=== PATIENT | male | born 1980 | race Caucasian/White ===

== ENCOUNTER → 2016-09-10 | Outpatient (CLI) | payer OTHER ==
[~2016-09-10] MED LIST: AMLO25TA PO; AMLO5TAB2 PO; ATOR1TAB19 PO; CELE40TA PO; CLAR10CA3 PO; GABA300C3 PO; GEMF600T PO; HYDR-3716 PO; HYDR-3719 PO; MOBI15TA PO; OMEP40CA2 PO; QUET1TAB10 PO; QUET1TAB8 PO; RANI150T PO; VENL150T PO
--- NOTE | 2016-09-10 13:53 | REP ---
LEFT SHOULDER: Three views. HISTORY: Left shoulder injury. FINDINGS: The left glenohumeral and acromioclavicular joints are normally aligned. Periarticular soft tissues are unremarkable. No fracture is seen. No subluxation noted. IMPRESSION: No fracture noted. Signed by Taran Mac MD 09/10/2016 03:10 P
== END ==
LOC: M LRY 09:38
PROVIDERS: ATTEND Physician Assistant
DX: S49.91XA Unspecified injury of right shoulder and upper arm, initial encounter (principal); X58.XXXA Exposure to other specified factors, initial encounter; Y92.9 Unspecified place or not applicable; Y93.9 Activity, unspecified; Y99.9 Unspecified external cause status

== ENCOUNTER → 2016-09-10 | Outpatient (REF) | payer OTHER ==
[2016-09-10 11:26] LABS: MEAN CORPUSCULAR HEMOGLOBIN 29.2 pg (27.0-33.0); MEAN CORPUSCULAR HGB CONC 32.6 g/dl (32.0-36.5); MEAN CORPUSCULAR VOLUME 89.6 fl (80.0-96.0); RED CELL DISTRIBUTION WIDTH 12.6 % (11.5-14.5); WHITE BLOOD COUNT 6.3 K/mm3 (4.0-10.0)
[2016-09-10 11:51] LABS: ALBUMIN/GLOBULIN RATIO 1.33 (1.00-1.93); ALKALINE PHOSPHATASE 89 U/L (45-117); ALT/SGPT 66 U/L (12-78); ANION GAP 8 MEQ/L (8-16); AST/SGOT 23 U/L (15-37); BILIRUBIN,TOTAL 0.1 MG/DL (0.2-1.0); BLOOD UREA NITROGEN 11 MG/DL (7-18); CALCIUM LEVEL 8.7 MG/DL (8.5-10.1); CARBON DIOXIDE LEVEL 27 MEQ/L (21-32); CHLORIDE LEVEL 105 MEQ/L (98-107); CHOLESTEROL LEVEL 182 MG/DL (<200); CREATININE FOR GFR 0.93 MG/DL (0.70-1.30); GLOMERULAR FILTRATION RATE > 60.0 (>60); GLUCOSE, FASTING 145 MG/DL (70-105); POTASSIUM SERUM 4.7 MEQ/L (3.5-5.1); SODIUM LEVEL 140 MEQ/L (136-145); TRIGLYCERIDES LEVEL 469 MG/DL (<150)
== END ==
LOC: M SFHCLERA 09:24
PROVIDERS: ATTEND Physician Assistant
DX: I10 Essential (primary) hypertension (principal); R73.01 Impaired fasting glucose; E78.2 Mixed hyperlipidemia; L74.519 Primary focal hyperhidrosis, unspecified

== ENCOUNTER → 2017-03-18 | Outpatient (REF) | payer OTHER ==
[~2017-03-18] MED LIST changes: +GABA-282 PO; -GABA300C3 PO; +IBUP80TA PO; +KEFL500C17 PO
== END ==
LOC: M SFHCLERA 09:03
PROVIDERS: ATTEND Physician Assistant
DX: I10 Essential (primary) hypertension (principal); E78.2 Mixed hyperlipidemia; R73.01 Impaired fasting glucose; Z53.9 Procedure and treatment not carried out, unspecified reason

== ENCOUNTER 2017-03-26 14:35 | Emergency (ER) | payer MEDICAID, OTHER ==
[~2017-03-26] VITALS: Ht 167.6 cm; Wt 106.4 kg
[2017-03-26 14:35] VITALS: BP 137/80
[~2017-03-26 14:35] MED LIST changes: -IBUP80TA PO; -KEFL500C17 PO
[2017-03-26] MEDS ORDERED: KEFL500C17 PO (17:54)
[2017-03-26] MEDS ORDERED: IBUP80TA PO (17:55)
== END 2017-03-26 18:12 | disposition home or self-care (01) ==
LOC: M ED 14:35
DX: L60.0 Ingrowing nail (principal); L03.032 Cellulitis of left toe; K21.9 Gastro-esophageal reflux disease without esophagitis; F33.8 Other recurrent depressive disorders; F17.290 Nicotine dependence, other tobacco product, uncomplicated; Z79.899 Other long term (current) drug therapy

== ENCOUNTER → 2017-04-14 | Outpatient (CLI) | payer OTHER ==
[~2017-04-14] MED LIST changes: +IBUP80TA PO; +KEFL500C17 PO
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
== END ==
LOC: M PAIN 14:45
PROVIDERS: ATTEND Nurse Practitioner Family
DX: G89.29 Other chronic pain (principal); M51.16 Intervertebral disc disorders with radiculopathy, lumbar region; M51.26 Other intervertebral disc displacement, lumbar region; M79.1 Myalgia; K21.9 Gastro-esophageal reflux disease without esophagitis; I10 Essential (primary) hypertension; Z72.0 Tobacco use; R73.01 Impaired fasting glucose; E66.09 Other obesity due to excess calories; E78.2 Mixed hyperlipidemia; F60.5 Obsessive-compulsive personality disorder; F63.81 Intermittent explosive disorder; F34.1 Dysthymic disorder; Z68.36 Body mass index [BMI] 36.0-36.9, adult; J30.2 Other seasonal allergic rhinitis; Z79.899 Other long term (current) drug therapy

== ENCOUNTER → 2017-10-01 | Outpatient (CLI) | payer OTHER | LOC: M PAIN 09:30 | DX: M51.16 Intervertebral disc disorders with radiculopathy, lumbar region (principal); M79.1 Myalgia; K21.9 Gastro-esophageal reflux disease without esophagitis; F41.9 Anxiety disorder, unspecified; F32.9 Major depressive disorder, single episode, unspecified; I10 Essential (primary) hypertension; E78.5 Hyperlipidemia, unspecified; J30.2 Other seasonal allergic rhinitis; Z72.0 Tobacco use; E66.01 Morbid (severe) obesity due to excess calories; Z68.36 Body mass index [BMI] 36.0-36.9, adult; Z79.899 Other long term (current) drug therapy | CPT/HCPCS: G0463 ==

== ENCOUNTER → 2017-11-02 | Outpatient (CLI) | payer OTHER | LOC: M PAIN 09:30 | DX: G89.29 Other chronic pain (principal); M51.16 Intervertebral disc disorders with radiculopathy, lumbar region; M79.1 Myalgia; Z79.899 Other long term (current) drug therapy; K21.9 Gastro-esophageal reflux disease without esophagitis; J30.2 Other seasonal allergic rhinitis; F41.9 Anxiety disorder, unspecified; F32.9 Major depressive disorder, single episode, unspecified; R73.01 Impaired fasting glucose; I10 Essential (primary) hypertension; E66.9 Obesity, unspecified; E78.2 Mixed hyperlipidemia; Z87.891 Personal history of nicotine dependence; Z68.38 Body mass index [BMI] 38.0-38.9, adult | CPT/HCPCS: G0463 ==

== ENCOUNTER 2017-12-17 03:55 | Emergency (ER) | payer OTHER, MEDICAID ==
[2017-12-17] MEDS: diazePAM 5 MG TAB PO (06:27)
[2017-12-17] MEDS: KETOROLAC 60 MG/2 ML VIAL (J1885) IM (06:28)
== END 2017-12-17 07:10 | disposition home or self-care (01) ==
LOC: M ED 03:55
DX: M54.5 Low back pain (principal); I10 Essential (primary) hypertension; K21.9 Gastro-esophageal reflux disease without esophagitis; E78.00 Pure hypercholesterolemia, unspecified; Z79.899 Other long term (current) drug therapy
CPT/HCPCS: J1885

== ENCOUNTER → 2019-05-10 | Outpatient (REF) ==
[~2019-05-10] MED LIST changes: -AMLO5TAB2 PO; +AMLO5TAB6 PO; -GABA-282 PO; +GABA-843 PO; -GEMF600T PO; +GEMF600T5 PO; +KETO10TAB PO; +SKEL800T97 PO; -VENL150T PO; +VENL150T14 PO
--- NOTE | 2019-05-11 02:30 | REP ---
Clinical: Low back pain. Technique: AP, lateral, coned-down views of the lumbosacral spine. Findings: Alignment and lordosis maintained. No acute fracture / compression injury or subluxation. Moderate degenerative changes at L5-S1 includes endplate sclerosis with disc space narrowing and hypertrophic facet changes. Impression: Moderate focal degenerative spondylosis at L5-S1 . Electronically Signed by Jose Olivera MD 05/11/2019 02:21 A
== END ==
LOC: M SMT 11:31
PROVIDERS: ATTEND Internal Medicine
DX: Z02.71 Encounter for disability determination (principal)

== ENCOUNTER → 2020-04-05 | Emergency (ER) | payer OTHER, MEDICAID ==
[~2020-04-05] MED LIST changes: +AMLO1TAB24 PO; -AMLO5TAB6 PO; -OMEP40CA2 PO; +OMEP40CA97 PO; +QUET100T2 PO; -QUET1TAB8 PO
[2020-05-20 10:55] LABS: BASO % 0.2 % (0.0-1.0); EOS % 0.3 % (0.0-3.0); HEMATOCRIT 43.4 % (42.0-52.0); HEMOGLOBIN 14.2 g/dl (13.5-17.5); LYMPH # 1.5 10^3/uL (1.5-5.0); LYMPH % 16.1 % (24.0-44.0); MEAN CORPUSCULAR HEMOGLOBIN 29.8 pg (27.0-33.0); MEAN CORPUSCULAR HGB CONC 32.7 g/dl (32.0-36.5); MONO # 0.7 10^3/uL (0.0-0.8); NEUTROPHILS # 6.9 10^3/uL (1.5-8.5); NEUTROPHILS % 75.1 % (36.0-66.0); PLATELET COUNT, AUTOMATED 346 10^3/uL (150-450); RED BLOOD COUNT 4.77 10^6/uL (4.30-6.10); WHITE BLOOD COUNT 9.2 10^3/uL (4.0-10.0)
[2020-06-28 13:57] LABS: ACETAMINOPHEN LEVEL < 2.0 UG/ML (10.0-30.0); AMPHETAMINES LEVEL URINE NEGATIVE (NEGATIVE); BARBITURATES URINE NEGATIVE (NEGATIVE); BENZODIAZEPINES URINE NEGATIVE (NEGATIVE); BLOOD UREA NITROGEN 12 MG/DL (7-18); CALCIUM LEVEL 9.6 MG/DL (8.5-10.1); CANNABINOIDS URINE POSITIVE (NEGATIVE); CARBON DIOXIDE LEVEL 27 MEQ/L (21-32); CHLORIDE LEVEL 105 MEQ/L (98-107); COCAINE METABOLITE URINE NEGATIVE (NEGATIVE); CREATININE FOR GFR 1.06 MG/DL (0.70-1.30); ETHYL ALCOHOL (ETHANOL) < 0.003 % (0.000-0.010); FREE T4 0.99 NG/DL (0.76-1.46); GLOMERULAR FILTRATION RATE > 60.0 (>60); GLUCOSE, FASTING 143 MG/DL (70-100); METHADONE URINE NEGATIVE (NEGATIVE); OPIATES URINE NEGATIVE (NEGATIVE); PHENCYCLIDINE URINE NEGATIVE (NEGATIVE); SALICYLATE LEVEL 5.5 MG/DL (5.0-30.0); SODIUM LEVEL 139 MEQ/L (136-145)
== END | disposition home or self-care (01) ==
LOC: M ED 09:20
DX: F43.0 Acute stress reaction (principal); F32.9 Major depressive disorder, single episode, unspecified; F90.9 Attention-deficit hyperactivity disorder, unspecified type; F17.200 Nicotine dependence, unspecified, uncomplicated; Z79.899 Other long term (current) drug therapy
CPT/HCPCS: 80048; 80307; 84439; 84443; 85025; 99284; G0480

== ENCOUNTER 2022-05-30 06:50 | Emergency (ER) | payer MEDICAID, OTHER ==
[~2022-05-30] VITALS: Ht 167.6 cm; Wt 95.5 kg
[~2022-05-30 06:50] MED LIST changes: +GABA-282 PO; -GABA-843 PO; +OMEP40CA4 PO; -OMEP40CA97 PO; -QUET1TAB10 PO; +QUET300T2 PO
[2022-05-30 06:51] VITALS: BP 165/96
[2022-05-30] MEDS ORDERED: KETOROLAC 60MG 2ML VIAL IM ONE (08:25)
[2022-05-30] MEDS ORDERED: LIDOCAINE VISCOUS 2% SOLN 15ML UDC SSP ONE (08:25)
[2022-05-30] MEDS ORDERED: AUGMENTIN 875 MG TAB PO ONE (08:25)
[2022-05-30] MEDS ORDERED: AMOX875T2 PO (08:29)
[2022-05-30] MEDS ORDERED: LIDO2SOL17 PO (08:29)
[2022-05-30] MEDS ORDERED: HYDR-3713 PO (08:29)
[2022-05-30] MEDS ORDERED: NAPR-837 PO (08:29)
== END 2022-05-30 08:50 | disposition home or self-care (01) ==
LOC: M ED 06:50
DX: K02.9 Dental caries, unspecified (principal); K03.81 Cracked tooth; I10 Essential (primary) hypertension; E78.5 Hyperlipidemia, unspecified; F17.200 Nicotine dependence, unspecified, uncomplicated; Z79.899 Other long term (current) drug therapy
CPT/HCPCS: 96372; 99282; J1885

== ENCOUNTER → 2024-04-27 | Outpatient (CLI) | payer OTHER ==
[~2024-04-27] MED LIST changes: +AMOX875T2 PO; +HYDR-3713 PO; +LIDO15SO8 PO; +NAPR-837 PO
[2024-04-27 15:30] LABS: BASO % 0.8 % (0.0-1.0); EOS # 0.3 10^3/uL (0.0-0.5); EOS % 5.1 % (0.0-3.0); HEMATOCRIT 42.9 % (42.0-52.0); HEMOGLOBIN 13.9 g/dl (13.5-17.5); LYMPH # 1.5 10^3/uL (1.5-5.0); LYMPH % 30.8 % (24.0-44.0); MEAN CORPUSCULAR HEMOGLOBIN 29.6 pg (27.0-33.0); MEAN CORPUSCULAR HGB CONC 32.4 g/dl (32.0-36.5); MEAN CORPUSCULAR VOLUME 91.3 fl (80.0-96.0); MONO # 0.4 10^3/uL (0.0-0.8); MONO % 7.8 % (2.0-8.0); NEUTROPHILS # 2.7 10^3/uL (1.5-8.5); NEUTROPHILS % 55.1 % (36.0-66.0); PLATELET COUNT, AUTOMATED 345 10^3/uL (150-450); WHITE BLOOD COUNT 4.9 10^3/uL (4.0-10.0)
[2024-04-27 15:36] LABS: ALKALINE PHOSPHATASE 80 U/L (46-116); ALT/SGPT 11 U/L (7.0-40); AST/SGOT < 8 U/L (<34); BILIRUBIN,TOTAL 0.2 MG/DL (0.3-1.2); BLOOD UREA NITROGEN 12 MG/DL (9-23); CALCIUM LEVEL 9.4 MG/DL (8.5-10.1); CARBON DIOXIDE LEVEL 28 MMOL/L (20-31); CHLORIDE LEVEL 108 MMOL/L (98-107); CHOLESTEROL LEVEL 224 MG/DL (<200); CHOLESTEROL RISK RATIO 5.33 (<5); CREATININE FOR GFR 0.91 MG/DL (0.70-1.30); GLOMERULAR FILTRATION RATE > 60.0 (>60); GLUCOSE, FASTING 111 MG/DL (60-100); LDL CHOLESTEROL 149.8 MG/DL (<100); POTASSIUM SERUM 4.4 MMOL/L (3.5-5.1); SODIUM LEVEL 140 MMOL/L (136-145); TOTAL PROTEIN 6.9 G/DL (5.7-8.2); TRIGLYCERIDES LEVEL 161 MG/DL (<150)
[2024-04-27 15:43] LABS: FREE T4 1.31 NG/DL (0.89-1.76); THYROID STIMULATING HORMONE 0.398 uIU/ML (0.55-4.78)
[2024-04-27 15:44] LABS: TOTAL 25(OH) VITAMIN D 25.3 NG/ML (20.0-100.0)
[2024-04-27 15:53] LABS: HEMOGLOBIN A1c 5.9 % (4.0-6.0)
== END ==
LOC: M PLALAB 12:28
PROVIDERS: ATTEND Physician Assistant
DX: I10 Essential (primary) hypertension (principal); K21.9 Gastro-esophageal reflux disease without esophagitis; R73.01 Impaired fasting glucose; E66.09 Other obesity due to excess calories; E78.2 Mixed hyperlipidemia

== ENCOUNTER → 2024-10-04 | Outpatient (CLI) | payer MEDICAID, OTHER ==
[~2024-10-04] MED LIST changes: +GABA-1172 PO; -GABA-282 PO
[2024-10-04 15:10] LABS: BASO % 0.4 % (0.0-1.0); EOS # 0.5 10^3/uL (0.0-0.5); EOS % 7.5 % (0.0-3.0); HEMATOCRIT 45.7 % (42.0-52.0); HEMOGLOBIN 14.7 g/dl (13.5-17.5); LYMPH # 1.6 10^3/uL (1.5-5.0); LYMPH % 24.2 % (24.0-44.0); MEAN CORPUSCULAR HEMOGLOBIN 28.9 pg (27.0-33.0); MEAN CORPUSCULAR HGB CONC 32.2 g/dl (32.0-36.5); MEAN CORPUSCULAR VOLUME 89.8 fl (80.0-96.0); MONO # 0.5 10^3/uL (0.0-0.8); MONO % 7.4 % (2.0-8.0); NEUTROPHILS # 4.1 10^3/uL (1.5-8.5); NEUTROPHILS % 60.2 % (36.0-66.0); PLATELET COUNT, AUTOMATED 283 10^3/uL (150-450); RED BLOOD COUNT 5.09 10^6/uL (4.30-6.10); WHITE BLOOD COUNT 6.8 10^3/uL (4.0-10.0)
[2024-10-04 15:21] LABS: LIPASE 46 U/L (12-53)
[2024-10-04 15:23] LABS: ALBUMIN 4.1 G/DL (3.2-5.2); ALKALINE PHOSPHATASE 69 U/L (40-129); ALT/SGPT 11 U/L (7.0-40); AST/SGOT < 8 U/L (<34); BILIRUBIN,TOTAL 0.3 MG/DL (0.3-1.2); BLOOD UREA NITROGEN 11 MG/DL (9-23); CALCIUM LEVEL 8.9 MG/DL (8.5-10.1); CARBON DIOXIDE LEVEL 26 MMOL/L (20-31); CHLORIDE LEVEL 107 MMOL/L (98-107); CREATININE FOR GFR 0.88 MG/DL (0.70-1.30); GLOMERULAR FILTRATION RATE > 60.0 (>60); GLUCOSE, FASTING 115 MG/DL (60-100); POTASSIUM SERUM 4.7 MMOL/L (3.5-5.1); SODIUM LEVEL 141 MMOL/L (136-145); TOTAL PROTEIN 6.7 G/DL (5.7-8.2)
== END ==
LOC: M PLALAB 10:55
PROVIDERS: ATTEND Nurse Practitioner Family
DX: R10.9 Unspecified abdominal pain (principal)

== ENCOUNTER → 2024-10-09 | Outpatient (CLI) | payer MEDICAID ==
[~2024-10-09] MED LIST changes: +ISOVUE-370 76% 100ML VIAL As Ordered ONE
== END ==
LOC: M RAD 10:33
PROVIDERS: ATTEND Student in an Organized Health Care Education/Training Program
DX: R10.9 Unspecified abdominal pain (principal)

== ENCOUNTER 2024-10-25 12:18 | Emergency (ER) | payer MEDICAID, OTHER ==
[~2024-10-25] VITALS: Ht 162.6 cm; Wt 95.2 kg
[~2024-10-25 12:18] MED LIST changes: -ISOVUE-370 76% 100ML VIAL As Ordered ONE
[2024-10-25 12:19] VITALS: BP 145/84; TEMP 97; O2SAT 97
[2024-10-25 14:32] LABS: KETONE, URINE AUTO RFX NEGATIVE (NEGATIVE); LEUKOCYTE ESTERASE UR AUTO RFX NEGATIVE (NEGATIVE); MUCUS, URINE RFX SMALL (NEGATIVE); NITRITE, URINE AUTO RFX NEGATIVE (NEGATIVE); RBC, URINE AUTO RFX 1 /HPF (0-3); SQUAM EPITHELIAL CELL UR AURFX 2 /HPF (0-6); WBC, URINE AUTO RFX 1 /HPF (0-3)
[2024-10-25 15:32] LABS: Trichomonas vaginalis (AMP) NOT DETECTED (NEGATIVE)
[2024-10-25 15:57] LABS: GC DNA AMPLIFICATION NEGATIVE (NEGATIVE)
[2024-10-25 16:23] LABS: BASO % 0.5 % (0.0-1.0); EOS # 0.3 10^3/uL (0.0-0.5); EOS % 4.9 % (0.0-3.0); HEMATOCRIT 43.8 % (42.0-52.0); HEMOGLOBIN 14.1 g/dl (13.5-17.5); LYMPH # 1.7 10^3/uL (1.5-5.0); LYMPH % 29.1 % (24.0-44.0); MEAN CORPUSCULAR HGB CONC 32.2 g/dl (32.0-36.5); MEAN CORPUSCULAR VOLUME 89.9 fl (80.0-96.0); MONO # 0.5 10^3/uL (0.0-0.8); MONO % 8.6 % (2.0-8.0); NEUTROPHILS # 3.2 10^3/uL (1.5-8.5); NEUTROPHILS % 56.7 % (36.0-66.0); PLATELET COUNT, AUTOMATED 311 10^3/uL (150-450); RED BLOOD COUNT 4.87 10^6/uL (4.30-6.10); WHITE BLOOD COUNT 5.7 10^3/uL (4.0-10.0)
[2024-10-25 16:50] LABS: ALBUMIN 4.3 G/DL (3.2-5.2); ALKALINE PHOSPHATASE 59 U/L (40-129); ALT/SGPT 12 U/L (7.0-40); AST/SGOT 10 U/L (<34); BILIRUBIN,TOTAL 0.5 MG/DL (0.3-1.2); BLOOD UREA NITROGEN 8 MG/DL (9-23); CALCIUM LEVEL 9.2 MG/DL (8.5-10.1); CARBON DIOXIDE LEVEL 26 MMOL/L (20-31); CHLORIDE LEVEL 107 MMOL/L (98-107); CREATININE FOR GFR 0.85 MG/DL (0.70-1.30); GLOMERULAR FILTRATION RATE > 60.0 (>60); GLUCOSE, FASTING 108 MG/DL (60-100); POTASSIUM SERUM 4.1 MMOL/L (3.5-5.1); SODIUM LEVEL 143 MMOL/L (136-145); TOTAL PROTEIN 6.8 G/DL (5.7-8.2)
[2024-10-25 16:53] LABS: C REACTIVE PROTEIN QUANTITATIV < 0.50 MG/DL (<1.0)
== END 2024-10-25 17:34 | disposition home or self-care (01) ==
LOC: M ED 12:18
DX: R10.9 Unspecified abdominal pain (principal); N50.3 Cyst of epididymis; N50.82 Scrotal pain; I10 Essential (primary) hypertension; E78.5 Hyperlipidemia, unspecified; Z79.2 Long term (current) use of antibiotics; Z79.1 Long term (current) use of non-steroidal anti-inflammatories (NSAID); Z79.899 Other long term (current) drug therapy